=== PATIENT | male | born 1970 | race Asian ===

== ENCOUNTER 2017-05-31 00:58 | Inpatient (IN) | payer OTHER ==
[2017-05-31] VITALS (7 sets, daily range): BP systolic 108–151; BP diastolic 72–99
[~2017-05-31] VITALS: Ht 172.7 cm; Wt 77.1 kg
[2017-05-31] MEDS ORDERED: Aspirin Baby 81mg ORAL ONE (01:15)
[2017-05-31 01:47] LABS: BASOPHILS % (AUTO) 1.6 % (0.0-2.0); EOSINOPHILS % (AUTO) 3.9 % (0.0-3.0); LYMPHOCYTES % (AUTO) 35.6 % (20.0-45.0); MEAN CORPUSCULAR HEMOGLOBIN 32.2 PG (27.0-31.0); MEAN CORPUSCULAR HGB CONC 34.8 G/DL (32.0-36.0); MEAN CORPUSCULAR VOLUME 93 FL (80-99); MEAN PLATELET VOLUME 9.1 FL (6.5-10.1); MONOCYTES % (AUTO) 8.1 % (1.0-10.0); NEUTROPHILS % (AUTO) 50.7 % (45.0-75.0); PLATELET COUNT 240 K/UL (150-450); RED BLOOD COUNT 5.12 M/UL (4.70-6.10); WHITE BLOOD COUNT 7.1 K/UL (4.8-10.8)
[2017-05-31 02:03] LABS: ALANINE AMINOTRANSFERASE 10 U/L (3-41); ALBUMIN/GLOBULIN RATIO 1.9 (1.0-2.7); ANION GAP 8 (5-15); ASPARTATE AMINO TRANSFERASE 13 U/L (5-40); CALCIUM 9.4 mg/dL (8.6-10.2); CARBON DIOXIDE 29 mEQ/L (20-30); CHLORIDE 99 mEQ/L (98-107); CREATININE 0.9 mg/dL (0.7-1.2); GLOMERULAR FILTRATION RATE > 60 mL/min (>60); HEMOLYSIS 5; INR 0.9 (0.9-1.1); LIPASE 126 U/L (< 60); POTASSIUM 3.8 mEQ/L (3.4-4.9); PROTHROMBIN TIME 9.9 SEC (9.30-11.50); SODIUM 136 mEQ/L (135-145); TOTAL PROTEIN 7.1 g/dL (6.6-8.7); TROPONIN I < 0.30 ng/mL (<=0.30)
[2017-05-31 02:14] LABS: CKMB < 1.5 ng/mL (< 6.7)
--- NOTE | 2017-05-31 03:19 | Emergency Room Report ---
History of Present Illness General Chief Complaint: Dizziness Source: Patient Present Illness HPI Patient is a 46-year-old male presented after having increased left-sided chest pain. Patient gradual onset of symptoms. The patient for an increase pain with movement and deep breath. Patient stated that he had pain worse with supine. The patient reported having some alcohol several days ago. He reports recent plane flights to [place]. The patient denies any hematemesis or bloody stools. Patient states that he had been feeling somewhat dizzy and felt like near-syncope. Patient brought in by EMS. He denies any prior cardiac history. Allergies: Coded Allergies: No Known Allergies (Unverified , 05/31/17) Patient History Past Medical History: see triage record Reviewed Nursing Documentation: PMH: Agreed, PSxH: Agreed Nursing Documentation-PMH Past Medical History: No Stated History Review of Systems All Other Systems: negative except mentioned in HPI Physical Exam Vital Signs Date Time Temp Pulse Resp B/P Pulse Ox O2 Delivery O2 Flow Rate FiO2 05/31/17 00:49 98.2 79 16 151/99 100 Room Air Sp02 EP Interpretation: reviewed, normal General Appearance: normal inspection, well appearing, no apparent distress, alert, GCS 15 Head: atraumatic ENT: normal ENT inspection, hearing grossly normal, normal voice Neck: normal inspection, full range of motion, supple, no bony tend Respiratory: normal inspection, lungs clear, normal breath sounds, no respiratory distress, no retraction, no wheezing Cardiovascular #1: regular rate, rhythm, no edema Gastrointestinal: normal inspection, normal bowel sounds, non tender, soft, no guarding, no hernia Genitourinary: no CVA tenderness Musculoskeletal: normal inspection, back normal, normal range of motion Neurologic: normal inspection, alert, oriented x3, responsive, reprographics technician III-XII nml as tested, speech normal Psychiatric: normal inspection, judgement/insight normal, mood/affect normal Skin: normal inspection, normal color, no rash Medical Decision Making Diagnostic Impression: Primary Impression: Dizziness Additional Impressions: Pancreatitis, acute Abnormal EKG ER Course The patient presented for dizziness. Differential diagnosis included wasn't limited to pulmonary embolism, orthostatic hypotension, anemia, myocardial infarction, arrhythmia among others.Because of complexity of patient's case laboratory testing and imaging studies were ordered. Laboratory studies were notable for elevated lipase consistent with possible pancreatitis. The patient was noted to have EKG interpreted by me was normal sinus rhythm with lateral inferior T wave inversion. A CT imaging of the chest was ordered due to patient's EKG and recent travel. The patient was given aspirin.Dr. Grace was contacted for inpatient management due to need for inpatient monitoring and treatment. Labs Test 05/31/17 01:20 White Blood Count 7.1 K/UL (4.8-10.8) Red Blood Count 5.12 M/UL (4.70-6.10) Hemoglobin 16.5 G/DL (14.2-18.0) Hematocrit 47.4 % (42.0-52.0) Mean Corpuscular Volume 93 FL (80-99) Mean Corpuscular Hemoglobin 32.2 PG (27.0-31.0) Mean Corpuscular Hemoglobin Concent 34.8 G/DL (32.0-36.0) Red Cell Distribution Width 11.0 % (11.6-14.8) Platelet Count 240 K/UL (150-450) Mean Platelet Volume 9.1 FL (6.5-10.1) Neutrophils (%) (Auto) 50.7 % (45.0-75.0) Lymphocytes (%) (Auto) 35.6 % (20.0-45.0) Monocytes (%) (Auto) 8.1 % (1.0-10.0) Eosinophils (%) (Auto) 3.9 % (0.0-3.0) Basophils (%) (Auto) 1.6 % (0.0-2.0) Prothrombin Time 9.9 SEC (9.30-11.50) Prothromb Time International Ratio 0.9 (0.9-1.1) Activated Partial Thromboplast Time 26 SEC (23-33) D-Dimer 65 ng/mL (<500) Sodium Level 136 mEQ/L (135-145) Potassium Level 3.8 mEQ/L (3.4-4.9) Chloride Level 99 mEQ/L (98-107) Carbon Dioxide Level 29 mEQ/L (20-30) Anion Gap 8 (5-15) Blood Urea Nitrogen 11 mg/dL (7-23) Creatinine 0.9 mg/dL (0.7-1.2) Estimat Glomerular Filtration Rate > 60 mL/min (>60) Glucose Level 112 mg/dL (74-106) Calcium Level 9.4 mg/dL (8.6-10.2) Total Bilirubin 0.3 mg/dL (0.0-1.2) Aspartate Amino Transf (AST/SGOT) 13 U/L (5-40) Alanine Aminotransferase (ALT/SGPT) 10 U/L (3-41) Alkaline Phosphatase 64 U/L (40-129) Total Creatine Kinase 70 U/L (38-174) Creatine Kinase MB < 1.5 ng/mL (< 6.7) Creatine Kinase MB Relative Index Troponin I < 0.30 ng/mL (<=0.30) Pro-B-Type Natriuretic Peptide 21 pg/mL (0-125) Total Protein 7.1 g/dL (6.6-8.7) Albumin 4.7 g/dL (3.5-5.2) Globulin 2.4 g/dL Albumin/Globulin Ratio 1.9 (1.0-2.7) Lipase 126 U/L (< 60) EKG Diagnostic Results Rate: normal Rhythm: NSR ST Segments: other - twave inversion Rhythm Strip Diag. Results EP Interpretation: yes Rhythm: NSR, no PVC's, no ectopy Last Vital Signs Date Time Temp Pulse Resp B/P Pulse Ox O2 Delivery O2 Flow Rate FiO2 05/31/17 01:00 98.2 16 151/99 100 Room Air 05/31/17 00:49 79 Status: unchanged Disposition: ADMITTED INPATIENT Condition: Serious Jorje Jolly May 31, 2017 03:18
[2017-05-31] MEDS ORDERED: Nitroglycerin Subl 0.4mg tab (Bottle Of 25) SL PRN (06:15)
[2017-05-31] MEDS ORDERED: Morphine Sulfate 2mg/ml Inj IVP ONE (06:15)
[2017-05-31] MEDS ORDERED: AMBIEN10 M1 ORAL (07:51)
[2017-05-31] MEDS ORDERED: Morphine Sulfate 2mg/ml Inj IVP PRN (08:15)
--- NOTE | 2017-05-31 08:20 | History & Physical ---
History and Physical History & Physicial seen and examined. Dictation completed Eloise Grace MD May 31, 2017 08:20
[2017-05-31 08:50] LABS: TROPONIN I < 0.30 ng/mL (<=0.30)
[2017-05-31] MEDS ORDERED: Heparin 5000 units/ml inj SUBQ SCH (09:00)
[2017-05-31] MEDS ORDERED: Aspirin EC 81mg tab ORAL SCH (09:00)
--- NOTE | 2017-05-31 09:19 | Diagnostic Imaging Report ---
Indication: Chest pain Technique: CT pulmonary angiogram performed utilizing automated exposure control with intravenous contrast. Axial, sagittal and coronal reconstructions were obtained. 3-D volumetric reconstructions were also performed. CT dose: Total DLP 603 mGycm; CTDI vol 21.9 mGy Comparison: None Findings: There is no central pulmonary embolus or aortic dissection. The heart size is within normal limits. There is minimal dependent atelectasis. There is no consolidation, pericardial or pleural effusions. There is no bulky adenopathy of the chest. There is a 9 mm focus of arterial enhancement within the right lobe of the partially visualized liver. Osseous structures demonstrate no acute abnormality. Impression: No central pulmonary embolus or aortic dissection. Minimal dependent atelectasis. Lungs otherwise clear. Approximately 9 mm focus of arterial enhancement within the right lobe of the partially visualized liver. Findings are nonspecific but could represent a flash filling hemangioma. Other etiologies not completely excluded. Followup versus further evaluation recommended as indicated. The CT scanner at [facility] is accredited by the [employer] and the scans are performed using protocols designed to limit radiation exposure to as low as reasonably achievable to attain images of sufficient resolution adequate for diagnostic evaluation.
--- NOTE | 2017-05-31 09:20 | Diagnostic Imaging Report ---
Indication: Shortness of breath Technique: XRAY CHEST 1 V Comparison: None Findings: The cardiomediastinal silhouette is within normal limits. There is no focal consolidation, pneumothorax or pleural effusion. Osseous structures demonstrate no acute abnormality. Impression: No acute cardiopulmonary disease.
[2017-05-31] MEDS: Aspirin Baby 81mg ORAL SCH (10:23)
[2017-05-31 16:55] LABS: TROPONIN I < 0.30 ng/mL (<=0.30)
[2017-05-31] MEDS: Heparin 5000 units/ml inj SUBQ SCH (21:00)
--- NOTE | 2017-05-31 23:00 | History and Physical Report ---
DATE OF ADMISSION: 05/31/2017 SOURCE OF INFORMATION: Patient and EMR. HISTORY OF PRESENT ILLNESS: The patient is a 46-year-old male with unremarkable past medical history, presented with left-sided chest wall pain. Pain is localized to the left. No radiation. The patient reported the pain does not have any alleviating or aggravating factor. Denies any dizziness. Denies any nausea, vomitus, diarrhea, or constipation. PAST MEDICAL HISTORY: Insomnia. PAST SURGICAL HISTORY: Denies. FAMILY HISTORY: Reviewed, noncontributory. SOCIAL HISTORY: The patient denies history of alcohol abuse or smoking. REVIEW OF SYSTEMS: All 12 elements of review of systems reviewed. The pertinent positives and negatives as detailed above. PHYSICAL EXAMINATION: VITAL SIGNS: Blood pressure 150/90, temperature is 98.2 degrees, pulse oximetry 98% on room air, and respiratory rate 18. HEAD AND NECK: Atraumatic and normocephalic. CHEST: Clear to auscultation. HEART: S1 and S2. Regular rate and rhythm. ABDOMEN: Soft. No organomegaly. MUSCULOSKELETAL: No gross focal motor deficit. NEUROLOGY: Awake, alert, and oriented x3. DIAGNOSTIC DATA: EKG reviewed as abnormal. Radiology report is pending. LABORATORY DATA: Lab results dated 04/30/2017 shows WBC 7.1 and hemoglobin 16.5. Sodium 136 and potassium 3.8. Lipase 126. ASSESSMENT: 1. Chest pain in a patient with abnormal EKG. Despite an unremarkable past medical history, he is medically justified to monitor the heart and obtain additional tests. 2. Abnormal lipase level, unlikely to be source of the acute pancreatitis. 3. Gastrointestinal and deep vein thrombosis prophylaxis. PLAN OF CARE: Cardiology, Dr. Blankenship has been notified. We will obtain a 2D echocardiogram. Eloise Grace M.D. DR: CAROLYN JOB#: [id number] CC:
[2017-06-01] VITALS: BP 105/70
[2017-06-01 04:00] VITALS: BP 106/71
[2017-06-01 08:00] VITALS: BP 110/75
--- NOTE | 2017-06-01 08:18 | Cardiology Report ---
APPROVED REPORT EKG Measurement Heart [id number] Normal sinus rhythm with sinus arrhythmia Possible Left atrial enlargement Nonspecific ST and T wave abnormality Abnormal ECG
[2017-06-01] MEDS: Heparin 5000 units/ml inj SUBQ SCH (09:00)
[2017-06-01] MEDS: Aspirin Baby 81mg ORAL SCH (09:02)
--- NOTE | 2017-06-01 09:47 | Cardiology Progress Note ---
Assessment/Plan Assessment/Plan The patient is seen and examined, full consult note is dictated. Objective Last 24 Hour Vital Signs Date Time Temp Pulse Resp B/P Pulse Ox O2 Delivery O2 Flow Rate FiO2 06/01/17 08:00 97.2 57 20 110/75 99 Room Air 06/01/17 07:28 53 06/01/17 04:00 56 06/01/17 04:00 97.0 54 16 106/71 97 Room Air 06/01/17 00:00 97.0 64 18 105/70 96 Room Air 06/01/17 00:00 56 05/31/17 20:00 97.0 70 18 108/80 96 Room Air 05/31/17 20:00 75 05/31/17 16:00 97.0 62 117/81 96 Room Air 05/31/17 16:00 60 05/31/17 10:31 97.2 64 16 108/72 96 Room Air Intake and Output 05/31/17 06/01/17 19:00 07:00 Intake Total 240 ml Balance 240 ml Intake Oral 240 ml # Voids 3 Laboratory Tests Test 05/31/17 16:00 Troponin I < 0.30 ng/mL (<=0.30) NANDINI BROTHERS Jun 01, 2017 09:47
--- NOTE | 2017-06-01 10:13 | General Progress Note ---
Assessment/Plan Status: stable Assessment/Plan 1. Chest pain in a patient with abnormal EKG. Despite an unremarkable past medical history, he is medically justified to monitor the heart and obtain additional tests. 2. Abnormal lipase level, unlikely to be source of the acute pancreatitis. 3. Gastrointestinal and deep vein thrombosis prophylaxis. Plan: Once ok by cardiology, february followup as outpatient Subjective ROS Limited/Unobtainable: No Constitutional: Reports: no symptoms HEENT: Reports: no symptoms Cardiovascular: Reports: no symptoms Respiratory: Reports: no symptoms Allergies: Coded Allergies: No Known Allergies (Unverified , 05/31/17) Objective Last 24 Hour Vital Signs Date Time Temp Pulse Resp B/P Pulse Ox O2 Delivery O2 Flow Rate FiO2 06/01/17 08:00 97.2 57 20 110/75 99 Room Air 06/01/17 07:28 53 06/01/17 04:00 56 06/01/17 04:00 97.0 54 16 106/71 97 Room Air 06/01/17 00:00 97.0 64 18 105/70 96 Room Air 06/01/17 00:00 56 05/31/17 20:00 97.0 70 18 108/80 96 Room Air 05/31/17 20:00 75 05/31/17 16:00 97.0 62 117/81 96 Room Air 05/31/17 16:00 60 05/31/17 10:31 97.2 64 16 108/72 96 Room Air Intake and Output 05/31/17 06/01/17 19:00 07:00 Intake Total 240 ml Balance 240 ml Intake Oral 240 ml # Voids 3 Laboratory Tests 05/31/17 16:00: Troponin I < 0.30 Height (Feet): 5 Height (Inches): 8.00 Weight (Pounds): 170 General Appearance: no apparent distress EENT: PERRL/EOMI Neck: supple Cardiovascular: normal rate Respiratory/Chest: lungs clear Abdomen: soft Extremities: non-tender Neurologic: glucose and syrup weigher II-XII grossly normal Eloise Grace MD Jun 01, 2017 10:13
--- NOTE | 2017-06-01 11:58 | Cardiology Report ---
APPROVED REPORT EXAM: Two-dimensional and M-mode echocardiogram with Doppler and color Doppler. INDICATION Chest Pain M-Mode DIMENSIONS IVSd0.7 (0.7-1.1cm)Left Atrium (MM)3.5 (1.6-4.0cm) LVDd4.9 (3.5-5.6cm)Aortic Root3.0 (2.0-3.7cm) PWd1.1 (0.7-1.1cm)Aortic Cusp Exc.1.9 (1.5-2.0cm) LVDs2.6 (2.5-4.0cm) PWs2.0 cm Normal left ventricular chamber size, systolic function and wall motion. Left ventricular ejection fraction estimated to be 55-60 %. Mild left ventricular hypertrophy. No evidence of pericardial fat or effusion. Right cardiac chamber sizes are within normal limits. Mild left atrial enlargement by 2D. Focal aortic valve sclerosis with adequate cusp excursion Mildy thickened mitral valve leaflets with normal excursion. Mild mitral annulus and aortic root calcification. Pulmonic valve is well visualized. Normal tricuspid valve structure. IVC is normal in size with physiologic collapse. A color flow and spectral Doppler study was performed and revealed: No aortic regurgitation. No mitral regurgitation. Normal left ventricular diastolic function. No tricuspid regurgitation. Pulmonic regurgitation present.
[2017-06-01 12:00] VITALS: BP 117/71
--- NOTE | 2017-06-01 22:15 | Consultation ---
DATE OF CONSULTATION: 06/01/2017 CARDIOLOGY CONSULTATION CONSULTING PHYSICIAN: Nahum Blankenship M.D. REFERRING PHYSICIAN: Eloise Grace M.D. REASON FOR CONSULTATION: Management of chest pain. HISTORY OF PRESENT ILLNESS: The patient is a very pleasant 46-year-old gentleman, who presents to the hospital with left axillary pain, which occurred after drinking alcohol. He considered the alcohol drinking as the binge drinking. He is not a heavy alcohol drinker, but he had felt some throbbing in the left axillary area. The patient did not have any pressure chest pain. He does not have any dyspnea on exertion. He claimed that the pain is increased with movement and deep respiration and also pain was worse with supine position. He states that he also has some degree of anxiety. He had a recent fly to [place]. He had been feeling somewhat dizzy and lightheaded. He does not take any medication besides his Ambien for his travels. PAST MEDICAL HISTORY: Anxiety disorder. PAST SURGICAL HISTORY: None. ALLERGIES: No known drug allergies. FAMILY HISTORY: No premature coronary artery disease or in the first-degree relatives. REVIEW OF SYSTEMS: HEENT: Denies any headache, diplopia, or blurred vision. Constitutional: Denies any headache, but had dizziness and lightheadedness on presyncopal episodes. HE DOES NOT REPORT ANY LOSS OF CONSCIOUSNESS. CONSTITUTIONAL: Denies any fever, chills, night sweats, or weight loss. Cardiovascular: Chest pain as mentioned above mainly in the axillary area, throbbing, not associated with any shortness of breath, diaphoresis, nausea, or vomiting. Lungs: Denies any hemoptysis, wheezing, or phlegm. Gastrointestinal: Denies any abdominal pain, nausea, vomiting, or GI bleed. Genitourinary: Denies any hematuria, dysuria, or incontinence. Neurology: Denies any motor dysfunction, sensory deficit, or altered speech. PHYSICAL EXAMINATION: VITAL SIGNS: Blood pressure was 151/99, pulse of 79, O2 saturation of 100%, respirations of 16, and temperature of 98.2 degrees Fahrenheit. GENERAL: The patient is a very pleasant 46-year-old gentleman, in no apparent respiratory distress. Alert and oriented x4. HEENT: Atraumatic and normocephalic. Anicteric. Pupils are equal, round, and reactive to light and accommodation. Extraocular muscles intact. NECK: JVP less than 5 cm. No carotid bruit. Carotid upstrokes is 2+ bilaterally. CVS: Normal S1 and S2. Regular rate and rhythm. No murmurs, gallops, or rubs. PMI is at fourth intercostal space in the midclavicular line. LUNGS: Clear to auscultation bilaterally. ABDOMEN: Soft, nontender, and nondistended. No hepatosplenomegaly. Positive bowel sounds. EXTREMITIES: No evidence of edema, clubbing, or cyanosis. LABORATORY FINDINGS: WBC of 7.1, hemoglobin was 16.5, hematocrit of 47.4, and platelet count is 240,000. Sodium is 136, potassium is 3.8, and chloride is 99. Troponin I less than 0.3. ProBNP was 21. Carbon dioxide 29. Creatinine is 0.9. BUN of 11, glucose is 112, and calcium is 9.4. Lipase is 126. A 12-lead electrocardiogram showed sinus rhythm with sinus arrhythmia at a rate of 62 with non-specific ST and T-wave abnormalities. ASSESSMENT AND PLAN: The patient is a very pleasant 46-year-old gentleman seen in Cardiology consultation. 1. Noncardiac chest pain. Per history, the chest pain is positional, reproducible, and pleuritic doubt with the current lipid panel as well as lack of family history. The patient has coronary artery disease. There are no risk factors for coronary artery disease in this patient. 2. The pain that is felt in the left axillary area most likely is more compatible with palpitation and a Event monitor required to rule out supraventricular tachycardia. I have discussed with the patient regarding this and he agreed to have that done in the outpatient setting. 3. History of anxiety disorder requiring Ambien as needed. I would like to thank Dr. Grace for allowing me to participate in the care of this patient. Nahum Blankenship M.D. DR: CHERYL JOB#: [id number] CC:
--- NOTE | 2017-06-02 13:51 | Discharge Summary ---
Discharge Summary Hospital Course Date of Admission May 31, 2017 at 08:20 Date of Discharge Jun 01, 2017 at 13:30 Admitting Diagnosis CHEST PAIN,PANCREATITIS HPI Reginaldo Bell is a 46 year old male who was admitted on May 31, 2017 at 08:20 for Chest Pain, Pancreatitis Hospital Course dc summary [id number] Discharge Condition Upon Discharge: stable Discharge Disposition Patient was discharged to Home (01) Discharge Diagnoses: Discharge Instructions Discharge Instructions Special Instructions I have been assigned to complete a D/C Summary on this account. I was not involved in the patient management Emmanuel Huffman)Luz Marina NP Jun 02, 2017 13:51
--- NOTE | 2017-06-03 15:44 | Cardiology Report ---
APPROVED REPORT EKG Measurement Heart [id number] Normal sinus rhythm Possible Left atrial enlargement Nonspecific T wave abnormality Abnormal ECG
--- NOTE | 2017-06-03 15:46 | Discharge Summary 2 SIG ---
DATE OF ADMISSION: 05/31/2017 DATE OF DISCHARGE: 06/01/2017 REASON FOR ADMISSION: This is a 46-year-old male with unremarkable past medical history presented with left-sided chest wall pain. The pain localized on the left side of the chest. No radiation. No nausea. No vomiting. No diarrhea. No constipation. No exertional shortness of breath. The patient felt somewhat dizzy like near syncope. Blood pressure was 151/99, pulse oximetry was stable on room air. Afebrile. First troponin was negative. Lipase was elevated of 126, however, the patient reported having few drinks a couple of days prior to this event. Laboratory workup essentially unremarkable. Troponin negative. ProBNP 21. EKG revealed normal sinus rhythm with sinus arrhythmia, nonspecific ST and T-wave abnormality, and possible left atrial enlargement. The patient admitted to telemetry floor. ADMITTING DIAGNOSES: Include: 1. Chest pain, rule out acute coronary syndrome. 2. Abnormal lipase level. HOSPITAL STAY: The patient admitted to telemetry floor. Serial troponins were negative. Lipid panel revealed borderline elevated triglyceride of 154. The patient counseled on low-fat, low-cholesterol diet. CTA revealed no evidence of PE. Chest x-ray revealed no acute cardiopulmonary pathology. Echocardiogram revealed preserved ejection fraction of 55% to 60%. Per cane burner, chest pain is atypical. Chest pain is noncardiac. Chest pain is positional, reproducible. The patient had no risk factor for coronary artery disease. Pain felt in the left axillary area mostly was compatible with palpitation. The patient was recommended that he should have event monitoring to rule out supraventricular tachycardia. It can be done as outpatient. Civil Geotechnical Engineer discussed with the patient this issue and the patient agreed to do it in the outpatient setting. The patient was stable for discharge. The patient also has a history of anxiety disorder, currently was not anxious. DISCHARGE DIAGNOSES: Include: 1. Noncardiac chest pain. 2. History of anxiety disorder. 3. Elevated lipase. Due to rapid and unexpected improvement in patient's condition, the patient was discharged in one day. DISCHARGE MEDICATIONS: See medication reconciliation list. DISCHARGE INSTRUCTIONS: The patient discharged home. Follow up with cane burner as outpatient for event monitoring to rule out supraventricular tachycardia. Eloise Grace M.D. I have been assigned to dictate discharge summary on this account and I was not involved in the patient's management. Luz Marina Benitez (vanchtein) NPaulPPaul DR: JERRY JOB#: [id number] CC:
== END 2017-06-01 13:30 | disposition home or self-care (01) | DRG 313 ==
LOC: EDBD 00:58 → EMR 03:17 → EDBEDREQ 07:59 → 2E 08:20
DX: R07.89 Other chest pain (principal); I25.10 Atherosclerotic heart disease of native coronary artery without angina pectoris; F41.9 Anxiety disorder, unspecified; R94.31 Abnormal electrocardiogram [ECG] [EKG]
CPT/HCPCS: 36415; 71010; 71275; 80053; 80061; 82550; 82553; 83690; 83880; 84484; 85025; 85379; 85610; 85730; 93005; 93306